=== PATIENT | female | born 2000 ===

== ENCOUNTER 2021-03-23 00:13 | Observation (INO) | payer SELFPAY ==
[2021-03-23] MEDS ORDERED: SODIUM CHLORIDE 0.9% 1000 ML 1,000 ML IV ONE (01:03)
[2021-03-23] MEDS ORDERED: KETOROLAC 30 MG/1 ML INJ IV ONE (01:03)
[2021-03-23] MEDS ORDERED: ONDANSETRON 4 MG/2 ML INJ IV ONE (01:03)
[2021-03-23 01:40] LABS: Hematocrit 37.9 % (30.3-42.9); Hemoglobin 12.4 gm/dl (10.1-14.3); Mean Corpuscular HGB Conc 33 % (30-34); Mean Corpuscular Volume 91 fl (79-97); Platelet Count 306 K/mm3 (140-440); Red Blood Count 4.16 M/mm3 (3.65-5.03); Red Cell Distribution Width 13.2 % (13.2-15.2)
[2021-03-23 01:46] LABS: Alanine Aminotransferase 8 units/L (7-56); Blood Urea Nitrogen 9 mg/dL (7-17); Calcium 8.4 mg/dL (8.4-10.2); Hemolysis Index 8
[2021-03-23 01:47] LABS: BUN/Creatinine Ratio 18; Bilirubin,Direct < 0.2 mg/dL (0-0.2)
--- NOTE | 2021-03-23 02:30 | Emergency Department Report ---
ED Abdominal Pain HPI - General Chief Complaint: Abdominal Pain Stated Complaint: ABDOMINAL PAIN Time Seen by Provider: 03/23/21 00:56 Source: EMS Mode of arrival: Stretcher Limitations: Language Barrier (Language line interpreter for the deaf used) - History of Present Illness Initial Comments: 21-year-old female, no past medical history, presents to ED with epigastric abdominal pain since 4 PM. Patient reports nausea and vomiting. Denies any diarrhea or fever. Patient denies any dysuria, hematuria, vaginal discharge, vaginal bleeding. Patient denies any alcohol intake recently. Patient denies having this pain in the past. MD Complaint: abdominal pain -: days(s) (1) Location: epigastric Radiation: none Migration to: no migration Severity: moderate Severity scale (0 -10): 3 Quality: aching Consistency: constant Improves With: nothing Worsens With: nothing Associated Symptoms: nausea, vomiting. denies: diarrhea, fever, dysuria, hematuria - Related Data Allergies Allergy/AdvReac Type Severity Reaction Status Date / Time No Known Allergies Allergy Verified 03/23/21 00:21 ED Review of Systems ROS: Stated complaint: ABDOMINAL PAIN Other details as noted in HPI Comment: All other systems reviewed and negative Constitutional: denies: fever Gastrointestinal: abdominal pain, nausea, vomiting. denies: diarrhea Genitourinary: denies: dysuria, frequency, hematuria, discharge ED Past Medical Hx - Past Medical History Previous Medical History?: No ED Physical Exam - General Limitations: Language Barrier General appearance: alert, in no apparent distress - Head Head exam: Present: atraumatic, normocephalic - Eye Eye exam: Present: normal appearance, EOMI - ENT ENT exam: Present: mucous membranes moist - Neck Neck exam: Present: normal inspection - Respiratory Respiratory exam: Present: normal lung sounds bilaterally. Absent: respiratory distress - Cardiovascular Cardiovascular Exam: Present: regular rate, normal rhythm - GI/Abdominal GI/Abdominal exam: Present: soft, tenderness (epigastric, RLQ). Absent: disten ded - Extremities Exam Extremities exam: Present: normal inspection - Neurological Exam Neurological exam: Present: alert, oriented X3 - Psychiatric Psychiatric exam: Present: normal affect, normal mood - Skin Skin exam: Present: warm, dry, intact, normal color ED Course Vital Signs 03/23/21 03/23/21 00:20 05:24 Temperature 99.4 F 98.2 F Pulse Rate 78 88 Respiratory 18 16 Rate Blood Pressure 95/55 114/67 [Left] O2 Sat by Pulse 98 100 Oximetry - Consultations Consultation #1: 03/23/21 05:[address] Cortes regarding appendicitis seen on CT. We will see the patient. ED Medical Decision Making - Lab Data Result diagrams: 03/23/21 01:11 03/23/21 01:11 - Radiology Data Radiology results: report reviewed, image reviewed - Medical Decision Making 21-year-old female presents to ED with abdominal pain. Patient reporting epigastric pain, however she does have some right lower quadrant tenderness on exam. WBCs elevated at 17. CT scan shows evidence of acute appendicitis, no abscess or perforation. Dr. Cortes, general surgeon, has been consulted and will see the patient. Patient will be admitted by Dr. Patton, hospitalist, for further management. - Differential Diagnosis Pancreatitis, cholecystitis, appendicitis Critical care attestation.: If time is entered above; I have spent that time in minutes in the direct care of this critically ill patient, excluding procedure time. ED Disposition Clinical Impression: Acute appendicitis Disposition: ADMITTED INPATIENT Is pt being admited?: Yes Condition: Stable Time of Disposition: 05:16
[2021-03-23 02:31] LABS: Bacteria,Urine 1+ /HPF (Negative); Bilirubin,Urine NEG (Negative); Blood,Urine NEG (Negative); Color,Urine Yellow (Yellow); Mucus,Urine FEW /HPF; Protein,Urine <15 mg/dL mg/dL (Negative); Urobilinogen,Urine < 2.0 mg/dL (<2.0)
[2021-03-23 02:45] LABS: Total Cells Counted 100
[2021-03-23 02:46] LABS: RBC Morphology Normal
--- NOTE | 2021-03-23 04:40 | Cat Scan Report ---
CT OF THE ABDOMEN AND PELVIS WITH INTRAVENOUS CONTRAST INDICATION / CLINICAL INFORMATION: Abdominal pain. TECHNIQUE: The patient received 75 cc Omnipaque [address] scans at this location are performed using CT dose reduction for ALARA by means of automated exposure control. COMPARISON: None available. FINDINGS: ABDOMEN: The liver, spleen, gallbladder, bile ducts, pancreas, adrenal glands, kidneys and bowel demo nstrate no significant abnormality. No vascular abnormality is seen. There is no evidence of adenopat hy. The lung bases are clear. PELVIS: The appendix is dilated, mildly thick-walled and fluid-filled. The appendix measures approxim ately 8 mm transverse. I do not identify an appendicolith. There is mild free fluid in the cul-de-sac . There is no evidence of abscess, bowel obstruction or free air. The distal ureters and urinary bladder are normal. The uterus and adnexal regions are unremarkable. T here is no evidence of diverticulitis. I do not identify a hernia. No osseous abnormality is seen. IMPRESSION: Acute, uncomplicated appendicitis. Signer Name: Keenan Roche MD Signed: 03/23/2021 4:35 AM Workstation Name: [id number]
[2021-03-23] MEDS ORDERED: PIPERACILLIN/TAZOBACTAM 3.375 3.375 GM/50 ML BAG IV ONE (05:07)
[2021-03-23] MEDS ORDERED: ACETAMINOPHEN 325 MG TAB PO PRN (05:56)
[2021-03-23] MEDS ORDERED: MORPHINE 2 MG/1 ML INJ IV PRN (05:56)
[2021-03-23] MEDS ORDERED: ONDANSETRON 4 MG/2 ML INJ IV PRN (05:56)
[2021-03-23] MEDS ORDERED: oxyCODONE /ACETAMINOPHEN 5-325MG TAB PO PRN (05:56)
[2021-03-23] MEDS ORDERED: SODIUM CHLORIDE 0.9% 1000 ML 1,000 ML IV SCH (06:00)
--- NOTE | 2021-03-23 06:05 | History and Physical Report ---
History of Present Illness Date of examination: 03/23/21 Date of admission: 03/23/21 05:16 Chief complaint: abdominal pain History of present illness: This is a 21-year-old female with no past medical history seen in ED at bedside. She presents to ED with epigastric abdominal pain since 4 PM. Patient reports nausea and vomiting. Denies any diarrhea or fever. Patient denies any dysuria, hematuria, vaginal discharge, vaginal bleeding. Patient denies any alcohol use, tobacco use and illicit drug use. I reviewed lab work values and CT of the abdomen. Ct showed acute appendicitis and blood work showed elevated WBC. General surgeon is consulted. Patient is started on empiric antibiotics. Past History Past Medical History: No medical history, other (appendicites) Past Surgical History: No surgical history Social history: no significant social history Medications and Allergies Allergies Allergy/AdvReac Type Severity Reaction Status Date / Time No Known Allergies Allergy Verified 03/23/21 00:21 Active Meds: Active Medications Acetaminophen (Acetaminophen 325 Mg Tab) 650 mg PO Q4H PRN PRN Reason: Pain MILD(1-3)/Fever >100.5/BENNETT Famotidine (Famotidine 20 Mg/2 Ml Inj) 20 mg IV BID [facility]I Sodium Chloride (Nacl 0.9% 1000 Ml) 1,000 mls @ 75 mls/hr IV DIRECT PRITI Piperacillin Sod/Tazobactam Sod (Zosyn/Ns 4.5gm/100ml) 4.5 gm in 100 mls @ 200 mls/hr IV Q8H PRITI; Protocol Morphine Sulfate (Morphine 2 Mg/1 Ml Inj) 2 mg IV Q4H PRN PRN Reason: Pain, Moderate (4-6) Ondansetron HCl (Ondansetron 4 Mg/2 Ml Inj) 4 mg IV Q8H PRN PRN Reason: Nausea And Vomiting Oxycodone/Acetaminophen (Oxycodone /Acetaminophen 5-325mg Tab) 1 tab PO Q6H PRN PRN Reason: Pain, Moderate (4-6) Sodium Chloride (Sodium Chloride 0.9% 10 Ml Flush Syringe) 10 ml IV BID PIRTI Sodium Chloride (Sodium Chloride 0.9% 10 Ml Flush Syringe) 10 ml IV PRN PRN PRN Reason: LINE FLUSH Review of Systems Constitutional: anorexia, fatigue Ears, nose, mouth and throat: no epistaxis, no bleeding gums Gastrointestinal: abdominal pain, nausea Musculoskeletal: no neck stiffness Integumentary: no rash, no pruritis, no redness Psychiatric: anxiety Hematologic/Lymphatic: no easy bruising, no easy bleeding, no lymphadenopathy, no lymphedema Exam - Constitutional Vitals: Temp Pulse Resp BP Pulse Ox 98.2 F 88 16 114/67 100 03/23/21 05:24 03/23/21 05:24 03/23/21 05:24 03/23/21 05:24 03/23/21 05:24 General appearance: Present: no acute distress, well-nourished - EENT Eyes: Present: PERRL ENT: hearing intact, clear oral mucosa - Neck Neck: Present: supple, normal ROM - Respiratory Respiratory effort: normal Respiratory: bilateral: CTA - Cardiovascular Heart Sounds: Present: S1 & S2. Absent: rub, click - Extremities Extremities: pulses symmetrical, No edema Peripheral Pulses: within normal limits - Abdominal General gastrointestinal: Present: soft, non-tender, non-distended, normal bowel sounds Localized gastrointestinal: tender: RLQ, guarding: RLQ Female genitourinary: Present: normal - Integumentary Integumentary: Present: clear, warm, dry - Musculoskeletal Musculoskeletal: gait normal, strength equal bilaterally - Psychiatric Psychiatric: appropriate mood/affect, intact judgment & insight, cooperative - Neurologic Neurologic: CNII-XII intact, moves all extremities - Allied Health Allied health notes reviewed: nursing Results - Labs CBC & Chem 7: 03/23/21 01:11 03/23/21 01:11 Labs: Abnormal lab results 03/23/21 03/23/21 Range/Units 01:11 01:11 WBC 17.0 H (4.5-11.0) K/mm3 Seg Neuts % (Manual) 90.0 H (40.0-70.0) % Lymphocytes % (Manual) 5.0 L (13.4-35.0) % Seg Neutrophils # Man 15.3 H (1.8-7.7) K/mm3 Lymphocytes # (Manual) 0.9 L (1.2-5.4) K/mm3 Monocytes # (Manual) 0.9 H (0.0-0.8) K/mm3 Creatinine 0.5 L (0.6-1.2) mg/dL Glucose 120 H (65-100) mg/dL Assessment and Plan - Patient Problems (1) Acute appendicitis Current Visit: Yes Status: Acute Plan to address problem: CT of the [id number] uncomplicated appendicitis General surgeon consult NPO status (2) Leukocytosis (leucocytosis) Current Visit: Yes Status: Acute Plan to address problem: Monitor WBC Start empiric antibiotics Blood culture time 2 (3) Abdominal pain Current Visit: Yes Status: Acute Plan to address problem: pain management PRN (4) Full code status Current Visit: Yes Status: Acute Plan to address problem: pt is full code
[2021-03-23] MEDS: PIPERACIL/TAZOBACTA 4.5/NS 100 4.5 GM/100 ML VIAL IV SCH ×3 (06:24→23:08)
[2021-03-23] MEDS ORDERED: SODIUM CHLORIDE P/F VIAL 10 ML 10 ML ONE ×2 (07:23→07:32)
[2021-03-23] MEDS ORDERED: LIDOCAINE MPF (2%) 20 MG/1 ML VIAL 5 ML ONE ×6 (07:23)
[2021-03-23] MEDS ORDERED: KETAMINE/STERILE WATER 50 MG/ML SYRINGE ONE (07:23)
[2021-03-23] MEDS ORDERED: ROCURONIUM 50 MG/5 ML INJ IV ONE (07:38)
[2021-03-23] MEDS ORDERED: LACTATED RINGERS 1,000 ML IV SCH (08:00)
[2021-03-23] MEDS: FAMOTIDINE 20 MG/2 ML INJ IV SCH ×2 (10:03→23:09)
--- NOTE | 2021-03-23 13:49 | Event Note ---
Date: 03/23/21 Patient examined in emergency department. Abdominal pain controlled with as needed pain medications. No longer having nausea or vomiting. Awaiting general surgery evaluation. We will continue n.p.o. status for now.
--- NOTE | 2021-03-23 19:42 | Consultation ---
History of Present Illness Consult date: 03/23/21 Reason for consult: abdominal pain - History of present illness History of present illness: 21 yo female with epigastric pain which has migrated to the [facility]. +nausea without vomiting. Past History Past Medical History: No medical history, other Past Surgical History: No surgical history Social history: no significant social history Medications and Allergies Allergies Allergy/AdvReac Type Severity Reaction Status Date / Time No Known Allergies Allergy Verified 03/23/21 00:21 Home Medications Medication Instructions Recorded Confirmed Last Taken Type No Known Home Medications [No 03/24/21 03/24/21 Unknown History Reported Home Medications] Active Meds: Active Medications Acetaminophen (Acetaminophen 325 Mg Tab) 650 mg PO Q4H PRN PRN Reason: Pain MILD(1-3)/Fever >100.5/BENNETT Famotidine (Famotidine 20 Mg/2 Ml Inj) 20 mg IV BID [facility] Last Admin: 03/23/21 10:03 Dose: 20 mg Documented by: Piperacillin Sod/Tazobactam Sod (Zosyn/Ns 4.5gm/100ml) 4.5 gm in 100 mls @ 200 mls/hr IV Q8H PRITI; Protocol Last Admin: 03/23/21 14:43 Dose: 200 mls/hr Documented by: Lactated Ringer's (Lactated Ringers) 1,000 mls @ 75 mls/hr IV DIRECT PRITI Stop: 03/23/21 21:19 Morphine Sulfate (Morphine 2 Mg/1 Ml Inj) 2 mg IV Q4H PRN PRN Reason: Pain, Moderate (4-6) Ondansetron HCl (Ondansetron 4 Mg/2 Ml Inj) 4 mg IV Q8H PRN PRN Reason: Nausea And Vomiting Oxycodone/Acetaminophen (Oxycodone /Acetaminophen 5-325mg Tab) 1 tab PO Q6H PRN PRN Reason: Pain, Moderate (4-6) Sodium Chloride (Sodium Chloride 0.9% 10 Ml Flush Syringe) 10 ml IV BID [facility] Last Admin: 03/23/21 10:03 Dose: 10 ml Documented by: Sodium Chloride (Sodium Chloride 0.9% 10 Ml Flush Syringe) 10 ml IV PRN PRN PRN Reason: LINE FLUSH Review of Systems All systems: negative (none.) Exam Vital Signs Temp Pulse Resp BP Pulse Ox 99.4 F 78 18 95/55 98 03/23/21 00:20 03/23/21 00:20 03/23/21 00:20 03/23/21 00:20 03/23/21 00:20 - General physical appearance Positive: well developed, well nourished, no distress - Eyes Positive: PERRL, normal occular movement - ENT Positive: normal pinna, normal nares, normal mucosa, no hearing loss, no congestion - Neck Positive: no masses, no bruits, trachea midline, no venous distension - Respiratory Positive: normal expansion, normal respiratory effort, clear to auscultation - Cardiovascular Rhythm: regular Heart Sounds: Present: S1 & S2. Absent: rub, click - Extremities Extremities: no ischemia, pulses symmetrical, No edema - Breasts Breasts: normal, no mass, no skin changes - Abdomen Abdomen: Present: soft, tender (Tender in the RLQ.), bowel sounds hypoactive. Absent: distended, rebound, guarding Hernia: none - Genitourinary Male Genitourinary: normal Female Genitourinary: normal - Integumentary no rash, no growths, no abnormal pigmentation - Neurologic Neurologic: alert and oriented to time, place and person, motor strength and sensation are grossly intact - Musculoskeletal normal gait, normal posture - Psychiatric Psychiatric: appropriate mood/affect, intact judgment & insight Results - Labs 03/24/21 05:57 03/24/21 05:57 Abnormal lab results 03/23/21 03/23/21 Range/Units 01:11 01:11 WBC 17.0 H (4.5-11.0) K/mm3 Seg Neuts % (Manual) 90.0 H (40.0-70.0) % Lymphocytes % (Manual) 5.0 L (13.4-35.0) % Seg Neutrophils # Man 15.3 H (1.8-7.7) K/mm3 Lymphocytes # (Manual) 0.9 L (1.2-5.4) K/mm3 Monocytes # (Manual) 0.9 H (0.0-0.8) K/mm3 Creatinine 0.5 L (0.6-1.2) mg/dL Glucose 120 H (65-100) mg/dL Diabetes panel 03/23/21 Range/Units 01:11 Sodium 141 (137-145) mmol/L Potassium 3.6 (3.6-5.0) mmol/L Chloride 105.4 (98-107) mmol/L Carbon Dioxide 22 (22-30) mmol/L BUN 9 (7-17) mg/dL Creatinine 0.5 L (0.6-1.2) mg/dL Glucose 120 H (65-100) mg/dL Calcium 8.4 (8.4-10.2) mg/dL AST 12 (5-40) units/L ALT 8 (7-56) units/L Alkaline Phosphatase 71 (35-129) units/L Total Protein 7.0 (6.3-8.2) g/dL Albumin 4.0 (3.9-5) g/dL Calcium panel 03/23/21 Range/Units 01:11 Calcium 8.4 (8.4-10.2) mg/dL Albumin 4.0 (3.9-5) g/dL Pituitary panel 03/23/21 Range/Units 01:11 Sodium 141 (137-145) mmol/L Potassium 3.6 (3.6-5.0) mmol/L Chloride 105.4 (98-107) mmol/L Carbon Dioxide 22 (22-30) mmol/L BUN 9 (7-17) mg/dL Creatinine 0.5 L (0.6-1.2) mg/dL Glucose 120 H (65-100) mg/dL Calcium 8.4 (8.4-10.2) mg/dL Adrenal panel 03/23/21 Range/Units 01:11 Sodium 141 (137-145) mmol/L Potassium 3.6 (3.6-5.0) mmol/L Chloride 105.4 (98-107) mmol/L Carbon Dioxide 22 (22-30) mmol/L BUN 9 (7-17) mg/dL Creatinine 0.5 L (0.6-1.2) mg/dL Glucose 120 H (65-100) mg/dL Calcium 8.4 (8.4-10.2) mg/dL Total Bilirubin 0.40 (0.1-1.2) mg/dL AST 12 (5-40) units/L ALT 8 (7-56) units/L Alkaline Phosphatase 71 (35-129) units/L Total Protein 7.0 (6.3-8.2) g/dL Albumin 4.0 (3.9-5) g/dL - Imaging CT scan - abdomen: report reviewed CT scan - pelvis: report reviewed Assessment and Plan - Patient Problems (1) Acute appendicitis Current Visit: Yes Status: Acute Plan to address problem: 1) Lap appendectomy in the am 2) IV Zosyn
[2021-03-23] MEDS ORDERED: D5W/0.45% NACL 1,000 ML IV SCH (23:45)
[2021-03-24] MEDS ORDERED: MORPHINE 2 MG/1 ML INJ IV ONE (00:30)
[2021-03-24] MEDS: PIPERACIL/TAZOBACTA 4.5/NS 100 4.5 GM/100 ML VIAL IV SCH (05:48)
[2021-03-24 06:18] LABS: Basophils % (Auto) 0.6 % (0.0-1.8); Eosinophils # (Auto) 0.1 K/mm3 (0.0-0.4); Hematocrit 36.2 % (30.3-42.9); Hemoglobin 11.7 gm/dl (10.1-14.3); Lymphocytes # (Auto) 2.5 K/mm3 (1.2-5.4); Lymphocytes % (Auto) 38.3 % (13.4-35.0); Mean Corpuscular HGB Conc 32 % (30-34); Mean Corpuscular Volume 92 fl (79-97); Monocytes # (Auto) 0.5 K/mm3 (0.0-0.8); Monocytes % (Auto) 7.3 % (0.0-7.3); Platelet Count 318 K/mm3 (140-440); Red Blood Count 3.93 M/mm3 (3.65-5.03); Red Cell Distribution Width 13.6 % (13.2-15.2)
[2021-03-24 06:45] LABS: Alanine Aminotransferase 6 units/L (7-56); Albumin 3.4 g/dL (3.9-5); Blood Urea Nitrogen 13 mg/dL (7-17); Calcium 8.2 mg/dL (8.4-10.2); Hemolysis Index 6
[2021-03-24 06:47] LABS: BUN/Creatinine Ratio 19
[2021-03-24] MEDS ORDERED: BUPIVACAINE/PF (0.5%) 5 MG/1 ML 30 ML VIAL INFILTRATI ONE ×2 (09:31→13:24)
[2021-03-24] MEDS ORDERED: ONDANSETRON 4 MG/2 ML INJ IV PRN (10:57)
[2021-03-24] MEDS ORDERED: HYDROmorphone 1 MG/1 ML INJ IV PRN ×2 (10:57)
[2021-03-24] MEDS ORDERED: ACETAMINOPHEN 325 MG TAB PO NR (10:58)
--- NOTE | 2021-03-24 10:59 | Anesthesia Day of Surgery ---
Anesthesia Day of Surgery - Day of Surgery Patient Examined: Yes Patient H&P Reviewed: Yes Patient is NPO: Yes
[2021-03-24] MEDS ORDERED: CELECOXIB 200 MG CAP PO NR (11:00)
[2021-03-24] MEDS ORDERED: MIDAZOLAM 2 MG/2 ML INJ IV NR (11:00)
[2021-03-24] MEDS ORDERED: LACTATED RINGERS 1,000 ML IV SCH (11:00)
--- NOTE | 2021-03-24 11:00 | Anesthesia Consultation ---
Anesthesia Consult and Med Hx Date of service: 03/24/21 - Airway Anesthetic Teeth Evaluation: Good ROM Head & Neck: Adequate Mental/Hyoid Distance: Adequate Mallampati Class: Class II Intubation Access Assessment: Good - Pre-Operative Health Status ASA Pre-Surgery Classification: ASA1 Proposed Anesthetic Plan: General - Pulmonary Hx Smoking: No Hx Asthma: No COPD: No Hx Pneumonia: No Hx Sleep Apnea: No - Central Nervous System Hx Psychiatric Problems: No - Endocrine Hx End Stage Renal Disease: No - Hematic Hx Anemia: No Hx Sickle Cell Disease: No - Other Systems Hx Cancer: No Hx Obesity: No
[2021-03-24] MEDS ORDERED: dexAMETHasone 20 MG/5 ML VIAL ONE (11:55)
[2021-03-24] MEDS ORDERED: ROCURONIUM 50 MG/5 ML INJ IV ONE (11:55)
[2021-03-24] MEDS ORDERED: LIDOCAINE MPF (2%) 20 MG/1 ML VIAL 5 ML ONE (11:55)
[2021-03-24] MEDS ORDERED: ONDANSETRON 4 MG/2 ML INJ ONE (11:55)
[2021-03-24] MEDS ORDERED: propofoL 200 MG/20 ML VIAL IV ONE (11:56)
[2021-03-24] MEDS ORDERED: fentaNYL 100 MCG/2 ML INJ ONE (11:56)
[2021-03-24] MEDS: FAMOTIDINE 20 MG/2 ML INJ IV SCH ×2 (12:00→21:55)
[2021-03-24] MEDS ORDERED: SODIUM CHLORIDE 0.9% IRR 1,500 ML BOTTLE IR ONE (13:18)
[2021-03-24] MEDS ORDERED: SODIUM CHLORIDE 0.9% IRRIG SOLN 2000 ML IR ONE (13:19)
[2021-03-24] MEDS ORDERED: NEOSTIGMINE 10MG/10 ML INJ MDV ONE (13:24)
[2021-03-24] MEDS ORDERED: GLYCOPYRROLATE 0.4 MG/2 ML INJ ONE ×2 (13:24)
[2021-03-24] MEDS ORDERED: LACTATED RINGERS 1,000 ML ONE (13:26)
--- NOTE | 2021-03-24 13:45 | Procedure Note ---
Date of procedure: 03/24/21 Pre-op diagnosis: Acute appendicitis Post-op diagnosis: same Procedure: Laparoscopic appendectomy Description of procedure: Pt was placed supine on the OR table. GETA was administered. Abdomen was prepped and draped. Proposed trocar sites were infiltrated with 8 ml of 0.5% Marcaine. A small infraumbilical incision was made and the peritoneal cavity carefully entered. A Steve port was inserted into the peritoneal cavity and pneumoperitoneum established. Two 5 mm ports were inserted in the midline of the suprapubic space and in the lateral LLQ. Pt was placed head and left side down. The appendix was identified and was inflamed but without gangrene or perforation. Mesoappendix was taken down with a Ligasure. Base of the appendix was stapled with an Endo-ALEISHA. Appendix was placed in an endobag and the endobag removed via the infraumbilical fascial defect. Staple line of the cecum was re-examined and was secure and hemostatic. 5 mm ports were removed. Steve port was removed. The infraumbilical fascial defect was closed with 2 interrupted sutures of 0-Vicryl. Skin incisions were closed with running subcuticular sutures of 4-0 Monocryl. Skin glue was applied to all incisions. Pt tolerated the procedure well and was taken to PACU in stable condition.
--- NOTE | 2021-03-24 13:47 | Event Note ---
Date: 03/24/21 Pt can be discharged. 1) Regular diet 2) F/u with me in 2 weeks 3) No lifting or straining 4) May shower in 48 hours. 5) Rx - Narcotic of choice + Cipro, 500 mg po bid X 7 days.
--- NOTE | 2021-03-24 16:37 | Progress Note ---
Assessment and Plan Assessment and plan: Patient is a 21-year-old female with no significant past medical history who presented with acute epigastric abdominal pain with associated nausea and vomiting that was found to be secondary to acute appendicitis as seen on CT abdomen/pelvis. #Acute uncomplicated appendicitis -Visualized on CT abdomen/pelvis. -Blood culture NGTD x48 hours -General surgery consulted; appreciate recs -Status post appendectomy on 03/24/2021. Patient will follow up with general surgery in clinic in 2 weeks. -Restarting clear liquid diet; will increase as tolerated. -Discontinue Zosyn. Starting Levaquin 500 mg every 24 hours x7 days. -Continue pain management. -Continue to monitor. #Advanced care planning -Disease education conducted, care plan discussed, diagnoses discussed, prognosis discussed, and patient acknowledges understanding with care plan -Time: +30 minutes #Discharge planning -Discharging home with antibiotic course and analgesics tomorrow morning Disposition Plan: Pending discharge home tomorrow Total Time Spent with Patient (Minutes): 45 minutes History Interval history: No acute event overnight. Hospitalist Physical - Constitutional Vitals: Temp Pulse Resp BP Pulse Ox 98.6 F 60 16 98/65 100 03/24/21 14:19 03/24/21 14:19 03/24/21 14:19 03/24/21 14:19 03/24/21 14:19 General appearance: Present: no acute distress, well-nourished - EENT Eyes: Present: PERRL, EOM intact ENT: hearing intact, clear oral mucosa, dentition normal - Neck Neck: Present: supple, normal ROM - Respiratory Respiratory effort: normal Respiratory: bilateral: CTA - Cardiovascular Rhythm: regular Heart Sounds: Present: S1 & S2 - Extremities Extremities: no ischemia, pulses intact, pulses symmetrical, No edema, normal temperature, normal color, Full ROM Peripheral Pulses: within normal limits - Abdominal General gastrointestinal: soft, tender (Right lower quadrant tenderness), non- distended, normal bowel sounds Localized gastrointestinal: tender: RLQ - Integumentary Integumentary: Present: clear, warm, dry - Psychiatric Psychiatric: appropriate mood/affect, intact judgment & insight, memory intact, cooperative - Neurologic Neurologic: CNII-XII intact, moves all extremities - Allied Health Allied health notes reviewed: nursing Results - Labs CBC & Chem 7: 03/24/21 05:57 03/24/21 05:57 Labs: Laboratory Last Values WBC 6.6 K/mm3 (4.5-11.0) 03/24/21 05:57 RBC 3.93 M/mm3 (3.65-5.03) 03/24/21 05:57 Hgb 11.7 gm/dl (10.1-14.3) 03/24/21 05:57 Hct 36.2 % (30.3-42.9) 03/24/21 05:57 MCV 92 fl (79-97) 03/24/21 05:57 MCH 30 pg (28-32) 03/24/21 05:57 MCHC 32 % (30-34) 03/24/21 05:57 RDW 13.6 % (13.2-15.2) 03/24/21 05:57 Plt Count 318 K/mm3 (140-440) 03/24/21 05:57 Lymph % (Auto) 38.3 % (13.4-35.0) H 03/24/21 05:57 Christian % (Auto) 7.3 % (0.0-7.3) 03/24/21 05:57 Eos % (Auto) 1.0 % (0.0-4.3) 03/24/21 05:57 Baso % (Auto) 0.6 % (0.0-1.8) 03/24/21 05:57 Lymph # (Auto) 2.5 K/mm3 (1.2-5.4) 03/24/21 05:57 Christian # (Auto) 0.5 K/mm3 (0.0-0.8) 03/24/21 05:57 Eos # (Auto) 0.1 K/mm3 (0.0-0.4) 03/24/21 05:57 Baso # (Auto) 0.0 K/mm3 (0.0-0.1) 03/24/21 05:57 Add Manual Diff Complete 03/23/21 01:11 Total Counted 100 03/23/21 01:11 Seg Neutrophils % 52.8 % (40.0-70.0) 03/24/21 05:57 Seg Neuts % (Manual) 90.0 % (40.0-70.0) H 03/23/21 01:11 Lymphocytes % (Manual) 5.0 % (13.4-35.0) L 03/23/21 01:11 Monocytes % (Manual) 5.0 % (0.0-7.3) 03/23/21 01:11 Nucleated RBC % Not Reportable 03/23/21 01:11 Seg Neutrophils # 3.5 K/mm3 (1.8-7.7) 03/24/21 05:57 Seg Neutrophils # Man 15.3 K/mm3 (1.8-7.7) H 03/23/21 01:11 Band Neutrophils # 0.0 K/mm3 03/23/21 01:11 Lymphocytes # (Manual) 0.9 K/mm3 (1.2-5.4) L 03/23/21 01:11 Abs React Lymphs (Man) 0.0 K/mm3 03/23/21 01:11 Monocytes # (Manual) 0.9 K/mm3 (0.0-0.8) H 03/23/21 01:11 Eosinophils # (Manual) 0.0 K/mm3 (0.0-0.4) 03/23/21 01:11 Basophils # (Manual) 0.0 K/mm3 (0.0-0.1) 03/23/21 01:11 Metamyelocytes # 0.0 K/mm3 03/23/21 01:11 Myelocytes # 0.0 K/mm3 03/23/21 01:11 Promyelocytes # 0.0 K/mm3 03/23/21 01:11 Blast Cells # 0.0 K/mm3 03/23/21 01:11 WBC Morphology Not Reportable 03/23/21 01:11 Hypersegmented Neuts Not Reportable 03/23/21 01:11 Hyposegmented Neuts Not Reportable 03/23/21 01:11 Hypogranular Neuts Not Reportable 03/23/21 01:11 Smudge Cells Not Reportable 03/23/21 01:11 Toxic Granulation Not Reportable 03/23/21 01:11 Toxic Vacuolation Not Reportable 03/23/21 01:11 Dohle Bodies Not Reportable 03/23/21 01:11 Pelger-Huet Anomaly Not Reportable 03/23/21 01:11 Mauricio Rods Not Reportable 03/23/21 01:11 Platelet Estimate Not Reportable 03/23/21 01:11 Clumped Platelets Not Reportable 03/23/21 01:11 Plt Clumps, EDTA Not Reportable 03/23/21 01:11 Large Platelets Not Reportable 03/23/21 01:11 Giant Platelets Not Reportable 03/23/21 01:11 Platelet Satelliting Not Reportable 03/23/21 01:11 Plt Morphology Comment Not Reportable 03/23/21 01:11 RBC Morphology Normal 03/23/21 01:11 Dimorphic RBCs Not Reportable 03/23/21 01:11 Polychromasia Not Reportable 03/23/21 01:11 Hypochromasia Not Reportable 03/23/21 01:11 Poikilocytosis Not Reportable 03/23/21 01:11 Anisocytosis Not Reportable 03/23/21 01:11 Microcytosis Not Reportable 03/23/21 01:11 Macrocytosis Not Reportable 03/23/21 01:11 Spherocytes Not Reportable 03/23/21 01:11 Pappenheimer Bodies Not Reportable 03/23/21 01:11 Sickle Cells Not Reportable 03/23/21 01:11 Target Cells Not Reportable 03/23/21 01:11 Tear Drop Cells Not Reportable 03/23/21 01:11 Ovalocytes Not Reportable 03/23/21 01:11 Helmet Cells Not Reportable 03/23/21 01:11 Phillips-Pe Ell Bodies Not Reportable 03/23/21 01:11 Bruce Rings Not Reportable 03/23/21 01:11 Carline Cells Not Reportable 03/23/21 01:11 Bite Cells Not Reportable 03/23/21 01:11 Crenated Cell Not Reportable 03/23/21 01:11 Elliptocytes Not Reportable 03/23/21 01:11 Acanthocytes (Spur) Not Reportable 03/23/21 01:11 Rouleaux Not Reportable 03/23/21 01:11 Hemoglobin C Crystals Not Reportable 03/23/21 01:11 Schistocytes Not Reportable 03/23/21 01:11 Malaria parasites Not Reportable 03/23/21 01:11 Richmond Bodies Not Reportable 03/23/21 01:11 Hem Pathologist Commnt No 03/23/21 01:11 Sodium 141 mmol/L (137-145) 03/24/21 05:57 Potassium 3.7 mmol/L (3.6-5.0) 03/24/21 05:57 Chloride 106.6 mmol/L (98-107) 03/24/21 05:57 Carbon Dioxide 23 mmol/L (22-30) 03/24/21 05:57 Anion Gap 15 mmol/L 03/24/21 05:57 BUN 13 mg/dL (7-17) 03/24/21 05:57 Creatinine 0.7 mg/dL (0.6-1.2) 03/24/21 05:57 Estimated GFR > 60 ml/min 03/24/21 05:57 BUN/Creatinine Ratio 19 % 03/24/21 05:57 Glucose 99 mg/dL (65-100) 03/24/21 05:57 Calcium 8.2 mg/dL (8.4-10.2) L 03/24/21 05:57 Total Bilirubin 0.60 mg/dL (0.1-1.2) 03/24/21 05:57 Direct Bilirubin < 0.2 mg/dL (0-0.2) 03/23/21 01:11 Indirect Bilirubin 0.2 mg/dL 03/23/21 01:11 AST 10 units/L (5-40) 03/24/21 05:57 ALT 6 units/L (7-56) L 03/24/21 05:57 Alkaline Phosphatase 58 units/L (35-129) 03/24/21 05:57 Total Protein 6.1 g/dL (6.3-8.2) L 03/24/21 05:57 Albumin 3.4 g/dL (3.9-5) L 03/24/21 05:57 Albumin/Globulin Ratio 1.3 % 03/24/21 05:57 Lipase 18 units/L (13-60) 03/23/21 01:11 HCG, Qual Negative (Negative) 03/23/21 01:11 Urine Color Yellow (Yellow) 03/23/21 02:17 Urine Turbidity Clear (Clear) 03/23/21 02:17 Urine pH 6.0 (5.0-7.0) 03/23/21 02:17 Ur Specific [place] 1.017 (1.003-1.030) 03/23/21 02:17 Urine Protein <15 mg/dl mg/dL (Negative) 03/23/21 02:17 Urine Glucose (UA) Neg mg/dL (Negative) 03/23/21 02:17 Urine Ketones 20 mg/dL (Negative) 03/23/21 02:17 Urine Blood Neg (Negative) 03/23/21 02:17 Urine Nitrite Neg (Negative) 03/23/21 02:17 Urine Bilirubin Neg (Negative) 03/23/21 02:17 Urine Urobilinogen < 2.0 mg/dL (<2.0) 03/23/21 02:17 Ur Leukocyte Esterase Neg (Negative) 03/23/21 02:17 Urine WBC (Auto) 1.0 /HPF (0.0-6.0) 03/23/21 02:17 Urine RBC (Auto) 2.0 /HPF (0.0-6.0) 03/23/21 02:17 U Epithel Cells (Auto) 3.0 /HPF (0-13.0) 03/23/21 02:17 Urine Bacteria (Auto) 1+ /HPF (Negative) 03/23/21 02:17 Urine Mucus Few /HPF 03/23/21 02:17 Microbiology: Microbiology 03/23/21 08:22 Peripheral/Venous Blood Culture - Preliminary NO GROWTH AFTER 24 HOURS 03/23/21 08:22 Peripheral/Venous Blood Culture - Preliminary NO GROWTH AFTER 24 HOURS Harris/IV: Voiding Method Toilet Active Medications - Current Medications Current Medications: Generic Name Dose Route Start Last Admin Trade Name Freq PRN Reason Stop Dose Admin Acetaminophen 650 mg 03/23/21 05:56 Acetaminophen 325 Mg Tab PO Q4H PRN Pain MILD(1-3)/Fever >100.5/BENNETT Acetaminophen 650 mg 03/24/21 10:58 03/24/21 11:29 Acetaminophen 325 Mg Tab PO 03/24/21 20:00 650 mg ONCE NR Administration Celecoxib 200 mg 03/24/21 11:00 03/24/21 11:29 Celecoxib 200 Mg Cap PO 03/24/21 20:00 200 mg PREOP NR Administration Famotidine 20 mg 03/23/21 10:00 03/24/21 12:00 Famotidine 20 Mg/2 Ml Inj IV 20 mg BID PRITI Administration Levofloxacin 500 mg 03/24/21 17:00 Levofloxacin 500 Mg Tab PO 03/31/21 16:59 Q24HR PRITI Protocol Morphine Sulfate 2 mg 03/23/21 05:56 Morphine 2 Mg/1 Ml Inj IV Q4H PRN Pain, Moderate (4-6) Ondansetron HCl 4 mg 03/23/21 05:56 Ondansetron 4 Mg/2 Ml Inj IV Q8H PRN Nausea And Vomiting Oxycodone/Acetaminophen 1 tab 03/23/21 05:56 Oxycodone /Acetaminophen 5-325mg Tab PO Q6H PRN Pain, Moderate (4-6) Sodium Chloride 10 ml 03/23/21 10:00 03/23/21 23:09 Sodium Chloride 0.9% 10 Ml Flush Syringe IV 10 ml BID PRITI Administration Sodium Chloride 10 ml 03/23/21 05:56 Sodium Chloride 0.9% 10 Ml Flush Syringe IV PRN PRN LINE FLUSH
--- NOTE | 2021-03-24 16:42 | Post Anesthesia Evaluation ---
- Post Anesthesia Evaluation Patient Participated: Yes Airway Patent: Yes Stable Respiratory Function: Yes Nausea/Vomiting: No Temp > 96.8F: Yes Pain Manageable: Yes Adequeate Hydration: Yes Anesthesia Complications: No Block Receding Appropriately: Not Applicable Patient on Ventilator: No
[2021-03-24] MEDS: levoFLOXacin 500 MG TAB PO SCH (18:52)
[2021-03-25 06:21] LABS: Basophils % (Auto) 0.2 % (0.0-1.8); Hematocrit 37.8 % (30.3-42.9); Hemoglobin 12.4 gm/dl (10.1-14.3); Lymphocytes # (Auto) 1.4 K/mm3 (1.2-5.4); Lymphocytes % (Auto) 14.5 % (13.4-35.0); Mean Corpuscular HGB Conc 33 % (30-34); Mean Corpuscular Volume 91 fl (79-97); Monocytes # (Auto) 0.7 K/mm3 (0.0-0.8); Monocytes % (Auto) 7.4 % (0.0-7.3); Platelet Count 348 K/mm3 (140-440); Red Blood Count 4.17 M/mm3 (3.65-5.03); Red Cell Distribution Width 13.1 % (13.2-15.2)
[2021-03-25 06:27] LABS: Blood Urea Nitrogen 9 mg/dL (7-17); Calcium 8.6 mg/dL (8.4-10.2); Hemolysis Index 4
[2021-03-25 06:30] LABS: BUN/Creatinine Ratio 18
[2021-03-25 12:37] VITALS: BP 107/51
[2021-03-25] MEDS: levoFLOXacin 500 MG TAB PO SCH (13:13)
[2021-03-25] MEDS ORDERED: FAMOTIDINE 20 MG TAB PO SCH (22:00)
--- NOTE | 2021-03-27 16:40 | Discharge Summary ---
Providers - Providers Date of Admission: 03/23/21 05:16 Date of discharge: 03/25/21 Attending physician: JAIME GUNN MD 03/23/21 05:27 Consult to Physician [CONS] Stat Comment: Consulting Provider: ANDI CHERRY Physician Instructions: Reason For Exam: appendicitis Primary care physician: CLINICAL TRIAL ASSISTANT Hospitalization Reason for admission: Acute, uncomplicated appendicitis Condition: Stable Pertinent studies: Reviewed. Procedures: Laparoscopic appendectomy Hospital course: Patient is a 21-year-old female with no significant past medical history who presented with acute abdominal pain that was found to be secondary to acute, uncomplicated appendicitis requiring laparoscopic appendectomy with general surgery. The patient tolerated the procedure well. The patient was discharged with analgesics and follow-up with general surgery in approximately 2 weeks. Disposition: 01 HOME / SELF CARE / HOMELESS Final Discharge Diagnosis (Prints w/discharge instructions): Acute, uncom plicated appendicitis status post laparoscopic appendectomy Time spent for discharge: 45 min Core Measure Documentation - Palliative Care Palliative Care/ Comfort Measures: Not Applicable - Core Measures Any of the following diagnoses?: none - VTE Discharge Requirements Deep Vein Thrombosis/Pulmonary Embolism Present on Admission: No Has pt received <5 days of overlap therapy or INR<2.0: No (Not indicated) Anticoagulant overlap therapy prescribed at discharge: No Contraindication No Overlap Therapy order at DC: Not Indicated - Acute OR Discharge Requirements Aspirin at discharge: No Reason for no aspirin on DC: Medical contraindication (Not indicated) HUY/ARB for LVSD if EF <40%: No Reason for no HUY/ARB: Medical contraindication (not indicated) Beta vane at discharge: No Reason for no beta vane on DC: Medical contraindication (not indicated) Statin for LDL = or >100 mg/dl on DC: No Reason for no statin on DC: Medical contraindication (Not indicated) - Heart Failure Discharge Requirements HUY/ARB for LVSD if EF <40%: Not Applicable Reason for no HUY/ARB: Medical contraindication (Not indicated) Beta vane at discharge: No Reason for no beta vane on DC: Medical contraindication (Not indicated) - Stroke Discharge Requirements Statin for LDL = or >70 mg/dl on DC: Not Applicable Reason for no statin on DC: Not Indicated Anticoag for atrial fib/atrial flutter: Not Applicable Reason for no anticoag for AF/F on DC: Not Indicated Antithrombotic for ischemic stroke: No Reason for no antithrombotic on DC: Not Indicated Exam - Constitutional Vitals: Temp Pulse Resp BP Pulse Ox 97.6 F 57 L 20 107/51 98 03/25/21 12:34 03/25/21 12:34 03/25/21 12:34 03/25/21 12:34 03/25/21 12:34 General appearance: Present: no acute distress, well-nourished - EENT Eyes: Present: PERRL, EOM intact ENT: hearing intact, clear oral mucosa, dentition normal - Neck Neck: Present: supple, normal ROM - Respiratory Respiratory effort: normal Respiratory: bilateral: CTA - Cardiovascular Rhythm: regular Heart Sounds: Present: S1 & S2 - Extremities Extremities: no ischemia, pulses intact, pulses symmetrical, No edema, normal temperature, normal color, Full ROM Peripheral Pulses: within normal limits - Abdominal General gastrointestinal: Present: soft, tender (Appropriate tenderness at incision site), non-distended, normal bowel sounds Female genitourinary: Present: deferred - Rectal Rectal Exam: deferred - Integumentary Integumentary: Present: clear, warm, dry - Musculoskeletal Musculoskeletal: strength equal bilaterally - Psychiatric Psychiatric: appropriate mood/affect, intact judgment & insight, memory intact, cooperative - Neurologic Neurologic: CNII-XII intact, moves all extremities - Allied Health Allied health notes reviewed: nursing Plan Care Plan Goals: Patient discharging home safely. Assessment: Patient was admitted for surgical management of acute, uncomplicated appendicitis requiring laparoscopic appendectomy. The patient tolerated the procedure well. The patient will be discharging with a antibiotics to be taken for a total of 7 days. Patient will follow up with general surgery in clinic in 2 weeks. Patient safe to discharge home. Follow up with: PRIMARY MD MAX [Primary Care Provider] - 7 Days ANDI CHERRY MD [Staff Physician] - 14 Days (Status post laparoscopic appendectomy) Prescriptions: levoFLOXacin [Levaquin TAB] 500 mg PO Q24HR #5 tablet oxyCODONE /ACETAMINOPHEN [Percocet 5/325 mg] 1 tab PO Q6H PRN #12 tablet PRN Reason: Pain, Moderate (4-6)
== END 2021-03-25 14:02 | disposition home or self-care (01) ==
LOC: ED 00:13 → 3A 05:16
PROVIDERS: ADMIT Internal Medicine Geriatric Medicine; ATTEND Student in an Organized Health Care Education/Training Program
DX: K35.80 Unspecified acute appendicitis (principal); D72.829 Elevated white blood cell count, unspecified; F41.9 Anxiety disorder, unspecified; R11.2 Nausea with vomiting, unspecified; R10.13 Epigastric pain; Z79.899 Other long term (current) drug therapy; Z98.890 Other specified postprocedural states
CPT/HCPCS: 36415; 44970; 74177; 80048; 80053; 80076; 81001; 83690; 83735; 84100; 84703; 85025; 87040; 88304; 96361; 96365; 96366; 96375; 96376; 99285; G0378; J1100; J1815; J1885; J2250; J2270; J2405; J2543; J2704; J2710; J3010; J3490; J7030; J7070; J7120; Q9967; 85007; J7121; Q0162